=== PATIENT | male | born 1985 ===

== ENCOUNTER 2024-04-09 10:19 | Outpatient (CLI) | payer OTHER, SELFPAY ==
--- NOTE | ~2024-04-09 | XR_ITS ---
EXAMINATION: XR finger 5th LT min 2V DATE: 04/09/2024 10:52 INDICATION: Left hand fifth digit pain. TECHNIQUE: 4 views of left hand fifth digit were obtained. COMPARISON: None. FINDINGS: There is ulnar and dorsal subluxation of fourth middle phalanx with respect to the proximal phalanx. No acute fracture. 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 IMPRESSION: 1. Ulnar and dorsal subluxation of fifth middle phalanx with respect to the proximal phalanx. 2. 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 Reviewed, dictated and finalized at location A. IMPRESSION: 1. Ulnar and dorsal subluxation of fifth middle phalanx with respect to the pro ximal phalanx. 2. 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
--- NOTE | ~2024-04-09 | XR_ITS ---
EXAMINATION: XR hand LT min 3V DATE: 04/09/2024 10:52 INDICATION: Pain in left fingers. TECHNIQUE: 3 views of left hand were obtained. COMPARISON: None. FINDINGS: There is ulnar and dorsal subluxation of fourth middle phalanx with respect to the proximal phalanx. No acute fracture. 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 There is mild osteoarthritis of third metacarpophalangeal joint. IMPRESSION: 1. Ulnar and dorsal subluxation of fifth middle phalanx with respect to the proximal phalanx. 2. 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 Reviewed, dictated and finalized at location A. IMPRESSION: 1. Ulnar and dorsal subluxation of fifth middle phalanx with respect to the pro ximal phalanx. 2. 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
== END 2024-04-09 10:20 | disposition home or self-care (01) ==
PROVIDERS: Visit Provider Plastic Surgery
DX: S63.207A Unspecified subluxation of left little finger, initial encounter (principal); M19.042 Primary osteoarthritis, left hand; X58.XXXA Exposure to other specified factors, initial encounter
CPT/HCPCS: 73130; 73140

== ENCOUNTER 2024-04-18 08:43 | Day surgery (SDC) | payer OTHER, SELFPAY ==
[2024-04-12 08:01] VITALS: BMI 33.2
[2024-04-18] VITALS (10 sets, daily range): BP systolic 89–145; BP diastolic 61–103; PULSE 61–78; RESP 9–22; TEMP 36.2–36.8; O2SAT 100
--- NOTE | ~2024-04-18 | XR_ITS ---
EXAMINATION: XR fluoroscopy no charge DATE: 04/18/2024 10:43 INDICATION: Left hand fifth proximal interphalangeal joint dislocation. TECHNIQUE: 3 intraoperative fluoroscopic views of left hand fifth digit were obtained. I was not pres ent. Fluoroscopy exposure time was 40 seconds. COMPARISON: Left hand fifth digit radiographs 04/09/2024 FINDINGS: There is chronic deformity of head of fifth proximal phalanx with ulnar sloping of the dist al articular surface. There is normal alignment at fifth proximal interphalangeal joint with fixation with 2 wires. 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 IMPRESSION: 1. Normal alignment at fifth proximal interphalangeal joint with fixation with 2 wires. 2. 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 Reviewed, dictated and finalized at location A.
--- NOTE | 2024-04-18 06:53 | P.PNAN_ITS ---
Anes - Initial Pre Proc Eval Procedure: Operation Date: 04/18/24 10:15 Proposed Procedures p Left Small Finger Proximal Interphalangeal Joint Reduction, Possible Open Reduction, Possible Fixation - Jaxon Pulido MD Date/Time: 04/18/24 06:53 Surgeon: Jaxon Pulido MD Pre Op Diagnosis: Pain In Left Finger Patient Data Age: 38 Gender: M Height: 1.8 m Weight: 108 kg Allergies Allergy/AdvReac Type Severity Reaction Status Date / Time No Known Allergies Allergy Verified 04/18/24 09:35 Home Medications Medication Instructions Recorded Confirmed Type doxycycline hyclate 100 mg capsule 100 mg PO BID 04/12/24 04/12/24 History lisinopril 20 mg tablet 20 mg PO DAILY 04/12/24 04/12/24 History Patient hx anesthesia problems: none Family hx anesthesia problems: none Results Review: All pre-operative results and documents have been reviewed as part of the pre- operative evaluation. [facility] Past Medical History Medical History (Updated 04/18/24 @ 06:54 by Mendel Wallis DO) Antisocial personality disorder Hypertension Social History Social History Smoking status: Never smoker Second hand tobacco smoke exposure: Yes Substance use: former Substance use type: marijuana Living arrangements: incarcerated Spiritual care concerns: No Anes - Eval Final PreProcedure Day of Procedure 04/18/24 06:53 Patient weight: overweight Heart: regular rate and rhythm Lungs: clear to auscultation Airway: Mallampati scale class II Neurological: alert and oriented Last oral intake: >/= 8 hours ASA classification: II Emergent: no Anesthetic plan: proceed Anesthesia type and monitoring: general LMA and standard monitoring Results Review: All pre-operative results and documents have been reviewed as part of the pre- operative evaluation. Informed Consent: The patient's anesthetic plan and its attendant risks and benefits were discussed with the patient/family/POA. Questions were solicited and answers provided to the satisfaction of the patient/family/POA.
--- NOTE | 2024-04-18 07:09 | P.HPUP_ITS ---
History and Physical Update Update Date/Time: 04/18/24 07:09 Patient seen and examined in pre-operative holding area. No interval change in medical history or symptoms. Patient recalls previous discussion of benefits and alternatives to procedure. Continues to desire to proceed with closed possibel open reduction and pinning left small finger fracture dislocation. Reviewed procedure, post-op expectations and risks including but not limited to bleeding, infection, injury to tendon/nerve/vessel, decreased hand function, stiffness, RSD, no change or worsening of symptoms, malunion, nonunion. I discussed the possible use of assistants and their participation in the case. Patient stated understanding and signed the consent form wishing to proceed. patient/guards brought patient's outpatient CT images on CD for review but no report provided. CT images reviewed noting significant arthritic changes with osteophytes and loose body of unclear origin that may be preventing reduction. discussed findings with patient and this arthritic deformity will likely have some half-way effect on recovery and expected finger range of motion, but discussed that we will still attempt to get joint in best position as possible.
--- NOTE | 2024-04-18 07:09 | W.PM.PROC2 ---
Procedure Note - Detailed Date of Procedure 04/18/24 Pre-op Diagnosis left small finger pipj fracture dislocation Post-op Diagnosis Same Procedure Performed open reduction left small finger pipj and pinning and excision benign bone lesion Surgeon Jaxon Pulido MD Footwear Sales Representative nata allen pa-c Anesthesia General Description of Procedure INFORMED CONSENT: The patient was seen and examined and marked in the pre-op area.? The patient signed the consent form. PROCEDURE IN DETAIL:The patient taken back to OR on the stretcher in supine position. Time out performed with anesthesia, surgeon and staff agreeing on patient's name site and surgery to be performed SCDs were placed on the lower extremities and inflated. A tourniquet was placed on {left} upper extremity and antibiotics given IV After anesthesia administered sedation I injected {5}cc 1%lido and 0.5% marcaine plain at the operative site for digital block in the palm The?{left upper extremity}?was prepped and draped in sterile fashion the??{left upper extremity} was? exsanguinated with Esmarch bandage and tourniquet inflated to 250mmHg The mini c-arm was draped and brought into the field. Have was able to achieve improved reduction of the joint but this was notably unstable. There was also a dorsal ulnar ossicle that appeared to be partially preventing reduction and could potentially affect patient's eventual recovery and range of motion. I made a longitudinal incision over the left small finger PIP joint through skin and dermis with a 15 blade scalpel. Dissection was carried down to the joint capsule and this bony ossicle. I dissected around this ossicle which was removed from the joint capsule. I irrigated with normal saline. Closure was done with 4-0 chromic. The unstable joint was reduced and two 0.045 K-wires were placed in a crossing retrograde fashion with the PIP joint in slight flexion and verified with multiple views of fluoroscopy The pins were shortened. Betadine-soaked alcohol swabs were used to cover the pin insertion sites. Xeroform was used on the sutures. 4X4s Ronald and an ulnar gutter splint were then applied with the MP joints in flexion secured with an Derek wrap after the tourniquet was let down noting the finger was warm and well perfused. The patient was then awaken from anesthesia and transferred to the recovery room in stable condition.? Complications - none EBL- 0cc Disposition - back to correctional facility in stable conditions Nata Allen PA-C was essential for positioning, fluoro, retraction, closure and dressing placement [facility] Billing Surgery - Charge Forward: Surgery Billing ([id number] same for nata adding modifier )
[2024-04-18] MEDS: LACTATED RINGERS 1,000 ML 30 ML IV CONT (10:05)
[2024-04-18] MEDS: ceFAZolin SODIUM 2 GM/20 ML SW SYRINGE IV PUSH (10:08)
[2024-04-18] MEDS: LIDOCAINE HCL 1% LOCAL INJ 20 ML VIAL 5 ML INFILTRATE (10:18)
[2024-04-18] MEDS: BUPivacaine HCL 0.5% 10 ML AMP 5 ML INFILTRATE (10:18)
[2024-04-18] MEDS: BACITRACIN ZINC OINTMENT 0.9 GRAM PACKET 1 PACKET TOPICAL (10:44)
[2024-04-18] MEDS: fentaNYL CITRATE INJ (*CRX) 100 MCG/2 ML VIAL 25 MCG IV PUSH (11:44)
--- NOTE | 2024-04-18 12:02 | WPDANESPN ---
Anes - Prog Note Post-Op Date/Time: 04/18/24 12:02 Cardiovascular status: normal Respiratory status: normal Airway patency: baseline Mental status: baseline Post-Op hydration status: normal Vital Signs: Last Vital Signs Temp 36.4 C 04/18/24 11:50 Pulse 62 04/18/24 11:56 Resp 14 04/18/24 11:56 BP 126/92 H 04/18/24 11:56 Pulse Ox 100 04/18/24 11:56 O2 Del Method Room Air 04/18/24 11:56 O2 Flow Rate 8 04/18/24 11:35 Pain Score (VAS): 2 I/O: Intake & Output 04/17/24 04/18/24 04/18/24 23:59 07:59 15:59 Intake Total 0 Balance 0 Post-procedural complaints: none Patient Feedback: Patient satisfied with anesthetic care. Other Findings: Patient vital signs back to baseline. Patient denies nausea and vomiting. Patient's pain under control. Patient OK for discharge.
[2024-04-18] MEDS: oxyCODONE HCL (*CRX) 5 MG TAB IR PO (12:23)
== END 2024-04-18 12:40 ==
PROVIDERS: PCP Internal Medicine; Visit Provider Plastic Surgery
PROC: (CPT 26785; principal; 2024-04-18 10:15)
DX: S63.287A Dislocation of proximal interphalangeal joint of left little finger, initial encounter (principal); M85.642 Other cyst of bone, left hand
CPT/HCPCS: 26785; 26210; 99199

== ENCOUNTER 2024-04-18 10:23 | Outpatient (NON) | payer OTHER, SELFPAY | END 2024-04-18 10:24 | disposition home or self-care (01) | LOC: ANHLAB 04-19 10:24 | PROVIDERS: PCP Internal Medicine; Visit Provider Plastic Surgery | DX: M79.645 Pain in left finger(s) (principal) | CPT/HCPCS: 88305 ==